=== PATIENT | female | born 1995 ===

== ENCOUNTER 2024-12-30 14:09 | Outpatient (CLI) | payer OTHER | END 2024-12-30 14:10 | disposition home or self-care (01) | LOC: PRENATAL 14:09 | PROVIDERS: ATTEND Obstetrics & Gynecology Maternal & Fetal Medicine | DX: O44.00 Complete placenta previa NOS or without hemorrhage, unspecified trimester (principal); Z3A.20 20 weeks gestation of pregnancy ==

== ENCOUNTER 2025-03-29 15:12 | Outpatient (CLI) | payer OTHER | END 2025-03-29 15:13 | disposition home or self-care (01) | LOC: PRENATAL 15:12 | PROVIDERS: ATTEND Obstetrics & Gynecology Maternal & Fetal Medicine | DX: O26.849 Uterine size-date discrepancy, unspecified trimester (principal); O36.8130 Decreased fetal movements, third trimester, not applicable or unspecified; O99.019 Anemia complicating pregnancy, unspecified trimester; Z3A.32 32 weeks gestation of pregnancy ==